=== PATIENT | female | born 1985 | race Caucasian/White ===

== ENCOUNTER 2016-07-16 03:12 | Inpatient (IN) | payer OTHER ==
[2016-07-16] MEDS ORDERED: OXYTOCIN IN LR 500 ML IV ONE ×2 (03:36→03:56)
[2016-07-16] MEDS ORDERED: IV START KIT ONE (03:36)
[2016-07-16] MEDS ORDERED: PUMP TUBING ONE (03:36)
[2016-07-16] MEDS ORDERED: LIDOCAINE Viscous 2% 15 ML UDCUP ONE (03:36)
[2016-07-16] MEDS ORDERED: MINERAL OIL 25 ML BOT ONE (03:36)
[2016-07-16] MEDS ORDERED: LIDOCAINE 1% (PRES FREE) 30 ML VIAL ONE (03:36)
[2016-07-16] MEDS ORDERED: LACTATED RINGERS 1,000 ML ONE ×2 (03:36→12:56)
[2016-07-16] MEDS ORDERED: OXYTOCIN 10 UNITS/ML VIAL ONE (03:36)
[2016-07-16] MEDS ORDERED: SODIUM CHLORIDE 0.9% FLUSH 10 ML ONE (03:37)
[2016-07-16] MEDS ORDERED: FENTANYL 100 MCG/2 ML VIAL IV ONE (03:58)
[2016-07-16 03:59] VITALS: BMI 27.7
[2016-07-16 04:08] LABS: HEMATOCRIT 31.6 % (37.0-47.0); HEMOGLOBIN 10.9 gm/l (12.0-16.0); MEAN CELL VOLUME 82.7 fl (81.0-99.0); MEAN CORPUSCULAR HEMOGLOBIN 28.5 pg (27.0-31.0); MEAN CORPUSCULAR HGB CONC 34.5 g/dl (33.0-37.0); RED CELL DISTRIBUTION WIDTH 12.9 % (11.5-14.5)
[2016-07-16] MEDS ORDERED: LIDOCAINE Viscous 2% 15 ML UDCUP TP ONE (04:15)
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
[2016-07-16 04:22] LABS: AMPHETAMINES/METHAMPHETAMINES NEGATIVE (NEGATIVE); COCAINE NEGATIVE (NEGATIVE); MARIJUANA NEGATIVE (NEGATIVE); METHADONE NEGATIVE (NEGATIVE); OPIATES NEGATIVE (NEGATIVE); TRICYCLIC ANTIDEPRESSANTS NEGATIVE (NEGATIVE)
[2016-07-16] MEDS: LACTATED RINGERS 1,000 ML IV SCH ×2 (06:02→06:49)
[2016-07-16] MEDS ORDERED: EPIDURAL PUMP SET ONE (06:07)
[2016-07-16] MEDS ORDERED: FENTANYL/ROPIVACAINE EPIDURAL 250 ML EP ONE (06:08)
[2016-07-16] MEDS ORDERED: FENTANYL/ROPIVACAINE EPIDURAL 250 ML EP SCH (06:35)
[2016-07-16] MEDS ORDERED: DIPHENHYDRAMINE HCL 50 MG/1 ML VIAL IV PRN (06:35)
[2016-07-16] MEDS ORDERED: NALBUPHINE HCL 20 MG/ML AMP IV PRN (06:35)
[2016-07-16] MEDS ORDERED: EPHEDRINE SULFATE 50 MG/ML 1ML VIAL IV PRN (06:35)
[2016-07-16] MEDS ORDERED: LACTATED RINGERS 1,000 ML IV SCH (06:35)
[2016-07-16] MEDS ORDERED: SODIUM CHLORIDE 0.9% 500 ML IV PRN (06:35)
[2016-07-16] MEDS ORDERED: METOCLOPRAMIDE HCL 5 MG/ML 2ML VIAL IV PRN (06:35)
[2016-07-16] MEDS ORDERED: LACTATED RINGERS 500 ML IV PRN (06:35)
[2016-07-16] MEDS ORDERED: ONDANSETRON 4 MG/2ML 2 ML VIAL IV PRN (06:35)
[2016-07-16] MEDS ORDERED: NALOXONE HCL 0.4 MG/ML VIAL IV PRN (06:35)
[2016-07-16] MEDS ORDERED: EPIDURAL PROCEDURE TRAY ONE (06:47)
[2016-07-16] MEDS ORDERED: ROPIVACAINE 0.5% 30 ML VIAL ONE (06:47)
[2016-07-16] MEDS ORDERED: LANOLIN 50 APPLIC/7G TUBE TP PRN (10:43)
[2016-07-16] MEDS ORDERED: DOCUSATE SODIUM 100 MG CAPSULE PO PRN (10:43)
[2016-07-16] MEDS ORDERED: ACETAMINOPHEN 325 MG TABLET PO PRN (10:43)
[2016-07-16] MEDS ORDERED: CALCIUM CARBONATE 500 MG TAB.CHEW PO PRN (10:43)
[2016-07-16] MEDS ORDERED: BENZOCAINE/MENTHOL 60 APPLIC/BOT TP PRN (10:43)
[2016-07-16] MEDS ORDERED: HYDROCODONE/ACETAMINOPHEN 5/325MG TABLET PO PRN (10:43)
--- NOTE | 2016-07-16 11:20 | PCMDEL ---
Delivery Note - Labor 1st stage (hr/min):: 7h8m 2nd stage (hr/min):: 2h10m 3rd stage (hr/min):: 0h11m Total (hr/min):: 9h29m Pushed (hr/min):: 0h16m - Delivery Delivery (Date): 07/16/16 Delivery (Time): 10:18 Gender: Male Presentation: Cephalic Position: OA Delayed Cord Clamping:: > 3 min 1 Minute Total: 9 5 Minute Total: 9 Placenta:: intact, spontaneous, stanton, 3vc EBL:: 300ml Perineum:: 1st deg perineal laceration Suture:: 4-0 vicryl Anesthesia/Meds:: epidural Length ROM:: 5h14m Comments:: Janey was admitted in active labor at 7cm, she requested and received epidural anesthesia. She then rested and made steady progress to complete, then labored down. FHT cat. I and II for occasional decels to 90-115s with good recovery and maintained moderate variability. She was straightcathed and then initiated pushing. She pushed well for controlled delivery of vigorous male infant, easy delivery of shoulders, OA, placed immediately on abdomen for skin to skin and . AMTSL with IV pitocin. 1st degree perineal laceration was repaired to approximation and hemostasis while cord pulsed. Cord clamped after pulsing stopped, cut by patient. Spontaneous delivery of intact placenta, stanton , trailing membranes slowly removed with ring forceps, 3vc. hemostasis achieved. EBL 300ml
[2016-07-16] MEDS: IBUPROFEN 800 MG TABLET PO SCH ×3 (16:28→22:24)
[2016-07-16] MEDS ORDERED: FLU VACC 2016-17 (36MO-64Y)/PF 60 MCG/0.5 ML SYRINGE IM V ONE (20:08)
[2016-07-17] MEDS: IBUPROFEN 800 MG TABLET PO SCH ×2 (05:56→15:29)
[2016-07-17] MEDS ORDERED: PRENATAL VIT/FE FUMARATE/FA 1 TABLET PO SCH (09:00)
[2016-07-17 09:19] VITALS: BP 110/72
--- NOTE | 2016-07-17 13:16 | PDOC39B ---
Hospital Course: ADMIT DATE: 07/16/16 DISCHARGE DATE:07/17/2016 ADMISSION DIAGNOSES: Active labor at term with Hx of drug abuse, clean and sober x 129 days PROCEDURES: 1st degree perineal laceration, repaired HISTORY OF PRESENT ILLNESS: 30 year old G4 T3 L3 at 40 weeks 1 days presenting with active labor at term. Care complicated by substance abuse - quit alcohol and meth in November at 6-8 weeks . Has very complicated and fairly unstable living situation. FOB is boyfriend who she was living with but has since moved in with a friend. Has completed [facility] in-patient treatment and reports clean UA's in program. Initial UDS with us was negative ( in January). Has been anemic with lowest Hgb 9.6 but most recent 11.0. Blood born viral screens all negative. Janey received an epidrual for pain management, progressed and delivered a vigorous, make , at 1018 on 07/16. Apgars 9/9. BW 8lbs 2oz. First degree perineal laceration, repaired. EBL 300mL HOSPITAL COURSE: Janey has had an uncomplicated hospital stay. Maternal and infant UDS negative during this stay. Her pain is well-controlled with ibuprofen. is going well. Lochia is light. She plans to DC to home and she is living with a close friend who will provide good help at home while she is recovering. Social work coordinated with [facility] and all agree that Janey is able to provide a safe and secure home for the infant at this time. Janey is still actively involved with the [facility] outpatient meetings and classes. Is very proud of her sobriety. By day of discharge the patient is ambulating, eating, voiding, and passing flatus without difficulty. Pain is controlled and lochia is appropriate. Midwifery 'After the ' handout given and reviewed with patient. - Physical Exam Vital Signs: Temp Pulse Resp BP Pulse Ox 98.2 F 78 16 110/72 07/17/16 09:18 07/17/16 09:18 07/17/16 09:18 07/17/16 09:18 General: Afebrile Psych/Mental Status: Mood/Affect Appropriate, Judgment/Insight Intact, Bonding Well Neurological: Grossly Intact, Alert, Oriented x 4 HEENT: Atraumatic Lungs: Clear to Auscultation Bilaterally, Normal Air Movement Cardiovascular: Regular Rate and Rhythm, Normal S1, Normal S2 Breast: Soft, Skin intact, Nipples Intact Fundus: Firm, Midline, Below Umbilicus Genitourinary: Normal Female Genitalia Lochia: Light Rectal Exam: Deferred Extremities: Full ROM Skin: Normal Color, Warm - Discharge Diagnosis (1) care following vaginal delivery Status: Acute Assessment/Plan: A: 30yo delivered healthy male infant on 07/16 at 40w0d successfully Normal PP recovery with Hx of drug abuse, clean and sober x 130 days P: Social work to visit with Janey today before discharge. Discharge to home care this evening. Midwifery 'After the ' handout given to patient, patient to call with any concerns. Plans Mirena IUD for PP control. Follow up with [facility] if any issues noted. Follow up with midwives at 2 weeks and 6 weeks. - Discharge Plan Condition: Stable Disposition: Home Instruction Forms: Vaginal Discharge Instructions Prescriptions: Docusate Sodium [COLACE 100 MG CAPSULE (SHF)] 100 mg PO DAILY PRN #30 cap PRN Reason: Constipation Ibuprofen [Motrin] 1 tab PO Q8H PRN #90 tablet PRN Reason: Pain Follow-Up: Vanesa Barragan CNM [Certified Nurse Script Girl] - As scheduled (1pm on July at the [facility])
== END 2016-07-17 16:04 | disposition home or self-care (01) | DRG 775 ==
LOC: FBC 03:12 → FBCOUT 03:12 → FBC 03:35
PROVIDERS: ADMIT Advanced Practice Midwife; ATTEND Advanced Practice Midwife
PROC: 0HQ9XZZ Repair Perineum Skin, External Approach (ICD-10-PCS; principal; 2016-07-16)
PROC: 10E0XZZ Delivery of Products of Conception, External Approach (ICD-10-PCS; 2016-07-16)
DX: O70.0 First degree perineal laceration during delivery (principal); O99.324 Drug use complicating childbirth; F15.20 Other stimulant dependence, uncomplicated; O99.314 Alcohol use complicating childbirth; F10.20 Alcohol dependence, uncomplicated; O99.02 Anemia complicating childbirth; D64.9 Anemia, unspecified; O09.43 Supervision of pregnancy with grand multiparity, third trimester; Z37.0 Single live birth; Z3A.40 40 weeks gestation of pregnancy